=== PATIENT | male | born 1995 | race African-American/Black ===

== ENCOUNTER → 2019-04-11 | Outpatient (CLI) | payer MEDICARE, MEDICAID ==
[2019-04-11 11:16] LABS: CLARITY URINE CLEAR (CLEAR); COLOR URINE YELLOW (YELLOW); KETONES URINE NEGATIVE (NEGATIVE); LEUKOCYTE ESTERASE URINE NEGATIVE (NEGATIVE); NITRITE URINE NEGATIVE (NEGATIVE); OCCULT BLOOD URINE NEGATIVE (NEGATIVE); PH URINE 5.5 (4.5-8.0); PROTEIN URINE NEGATIVE (NEGATIVE); UROBILINOGEN URINE 0.2 E.U./dL (0.2-1.0)
[2019-04-11 15:30] LABS: BASOPHILS % 2.2 % (0.0-2.0); EOSINOPHILS % 2.4 % (0.0-5.0); HEMATOCRIT. 43.1 % (42.0-52.0); HEMOGLOBIN. 14.4 g/dL (14.0-18.0); LYMPHOCYTES % 37.3 % (20.0-50.0); MEAN CORPUSCULAR HEMOGLOBIN 31.3 pg (28.0-32.0); MEAN CORPUSCULAR VOLUME 93.6 fL (80.0-94.0); MEAN PLATELET VOLUME 8.1 fl (7.4-10.4); MONOCYTES % 9.9 % (2.0-8.0); NEUTROPHILS % 48.2 % (40.0-76.0); PLATELET 299 x1000/uL (130-400)
[2019-04-11 15:44] LABS: CHLORIDE 112 mEq/L (98-107)
[2019-04-11 15:51] LABS: LDL CHOLESTEROL 75 mg/dL (5-100)
[2019-04-11 15:52] LABS: HDL CHOLESTEROL 40 mg/dL (40-59)
[2019-04-11 15:57] LABS: HEPATITIS B SURFACE AB < 3.1 mIU/mL
[2019-04-11 16:14] LABS: VITAMIN B12 SERUM 464 pg/mL (211-911)
[2019-04-13 04:07] LABS: CHLAMYDIA TRACHOMATIS NAA Negative (Negative); NEISSERIA GONORRHOEAE NAA Negative (Negative)
[2019-04-13 06:11] LABS: HEPATITIS A ANTIBODY TOTAL Positive (Negative); HIV SCREEN 4G Non Reactive (Non Reactive)
[2019-04-14 04:09] LABS: QFT MITOGEN VALUE >10.00 IU/mL (.); QFT TB GOLD PLUS Negative (Negative); QFT TB1 AG VALUE 0.04 IU/mL (.)
== END | disposition home or self-care (01) ==
LOC: LAB 08:29
DX: F72 Severe intellectual disabilities (principal); Q90.0 Trisomy 21, nonmosaicism (meiotic nondisjunction); Q21.0 Ventricular septal defect; Z79.899 Other long term (current) drug therapy; Z11.59 Encounter for screening for other viral diseases
CPT/HCPCS: 36415; 80061; 81003; 82306; 82607; 83036; 83655; 83735; 84443; 86480; 86592; 86706; 86708; 86803; 87389; 87491; 87591